=== PATIENT | female | born 2000 | race African-American/Black ===

== ENCOUNTER 2020-06-27 10:48 | Emergency (ER) | payer OTHER, SELFPAY ==
[2020-06-27 11:00] VITALS: BP 129/65; PULSE 77; RESP 20; TEMP 37; O2SAT 99
--- NOTE | 2020-06-27 12:31 | ED.GENADULT ---
HPI - General Adult General Chief complaint: Unspecified Stated complaint: sore throat Time Seen by Provider: 06/27/20 11:17 Source: patient History of Present Illness HPI narrative: Patient is a 19 y/o female complaining of sore throat for 1 week. She describes her discomfort as a soreness and it's mostly on the right side. She rates her pain as 3/10 and states that swallowing worsens her pain. However, she is able eat and drink. She also has some right sided neck pain. She denies any fever or cough. Review of Systems Constitutional: Constitutional: Denies chills, Denies fever(s), Denies headache(s) and Denies weakness Eyes: Eyes: Denies blurry vision ENT: Denies headache(s), Reports neck pain and Reports sore throat Cardiovascular: Cardiovascular: Denies chest pain and Denies dyspnea Respiratory: Respiratory: Denies cough and Denies dyspnea Gastrointestinal: Gastrointestinal: Denies abdominal pain, Denies diarrhea, Denies nausea and Denies vomiting Genitourinary: Genitourinary: Denies hematuria and Denies dysuria Musculoskeletal: Musculoskeletal: Denies back pain and Denies neck pain Neurologic: Denies headache(s) and Denies weakness Exam Const: General: no acute distress and well developed Orientation/consciousness: oriented to person, oriented to place, oriented to time and patient oriented x3 HENMT: Head: normocephalic Ears: external ears normal General nose exam: Normal external nose present Throat: no peritonsillar masses and posterior oropharynx abnormal erythema Eyes: General: appearance normal, both eyes and all related structures Conjunctivae: conjunctivae normal Neck: Neck: normal visual inspection, full ROM and lymphadenopathy right anterior cervical tender Chest: Chest palpation & inspection: normal inspection of the chest and no tenderness Resp: Effort & Inspection: normal respiratory effort Auscultation: clear to auscultation bilaterally Cardio: Rate: regular rate Rhythm: regular rhythm GI: GI Palp: No abdominal tenderness and Yes Soft to palpation Skin: General skin exam: normal color and turgor normal Neuro: General: oriented to person, oriented to place, oriented to time and patient oriented x3 Cognition (Neuro): normal cognition Extrem: General: normal to inspection, full ROM and no pedal edema Psych: Appearance: grossly normal Mental Status: mental status grossly normal Affect: normal affect Course Vital Signs Vital signs: Vital Signs Temperature 37.0 C 12/21/20 11:00 Pulse Rate 77 06/27/20 11:00 Respiratory Rate 20 06/27/20 11:00 Blood Pressure 129/65 06/27/20 11:00 Pulse Oximetry 99 06/27/20 11:00 Temperature 37.0 C 06/27/20 11:00 Pulse Rate 77 06/27/20 11:00 Respiratory Rate 20 06/27/20 11:00 Blood Pressure 129/65 06/27/20 11:00 Pulse Oximetry 99 06/27/20 11:00 Medical Decision Making Vital Signs Vital Signs: Vital Signs Temperature 37.0 C 06/27/20 11:00 Pulse Rate 77 06/27/20 11:00 Respiratory Rate 20 06/27/20 11:00 Blood Pressure 129/65 06/27/20 11:00 Pulse Oximetry 99 06/27/20 11:00 Temperature 37.0 C 06/27/20 11:00 Pulse Rate 77 06/27/20 11:00 Respiratory Rate 20 06/27/20 11:00 Blood Pressure 129/65 06/27/20 11:00 Pulse Oximetry 99 06/27/20 11:00 Lab Data Labs: Lab Results 06/27/20 Range/Units 12:06 SARS-CoV-2 RNA (RT-PCR) Pending Strep Screen Presumptive Negative *(Reference Range: Negative)* Discharge Plan Discharge Clinical Impression: Sorethroat, Person under investigation for COVID-19 Patient Disposition: Home, Self-Care Condition: Stable Instructions: Antibiotic Form, Pharyngitis (ED) Prescriptions: New penicillin V potassium 500 mg tablet 500 mg PO TID Qty: 30 RF: 0 Follow-up/Referrals: Carrington Alaniz MD [Physician] - 1 Week UNKNOWN,DOCTOR [Primary Care Provider] -
[2020-06-27 22:00] LABS: SARS-CoV-2 RNA PCR Negative
== END 2020-06-27 12:13 | disposition home or self-care (01) ==
PROVIDERS: Emergency Provider Emergency Medicine
DX: J02.9 Acute pharyngitis, unspecified (principal); Z20.828 Contact with and (suspected) exposure to other viral communicable diseases
CPT/HCPCS: 87081; 87147; 87635; 87880; 99283; C9803; U0003